=== PATIENT | male | born 1985 | race Caucasian/White ===

== ENCOUNTER → 2017-01-18 | Outpatient (CLI) | payer OTHER ==
[2017-01-18 12:20] LABS: ABSOLUTE EOSINOPHILS # (AUTO) 0.2 10^3/uL (0.0-0.6); ABSOLUTE LYMPHOCYTES (AUTO) 3.5 10^3/uL (0.5-4.7); ABSOLUTE MONOCYTES (AUTO) 0.7 10^3/uL (0.1-1.4); ABSOLUTE NEUT (AUTO) 4.3 10^3/uL (1.7-8.2); BASOPHILS % (AUTO) 0.6 % (0-2); EOSINOPHILS % (AUTO) 2.1 % (0-6); HEMOGLOBIN 16.9 g/dL (13.5-17.0); HGB HCT DIFFERENCE -0.3; LYMPHOCYTES % (AUTO) 40.4 % (13-45); MEAN CORPUSCULAR HEMOGLOBIN 29.9 pg (27.0-33.4); MEAN CORPUSCULAR VOLUME 91 fl (80-97); MONOCYTES % (AUTO) 7.9 % (3-13); RED BLOOD COUNT 5.63 10^6/uL (4.35-5.55); RED CELL DISTRIBUTION WIDTH 13.3 % (11.5-14.0); WHITE BLOOD COUNT 8.7 10^3/uL (4.0-10.5)
[2017-01-18 12:42] LABS: ALANINE AMINOTRANSFERASE 64 U/L (21-72); ALBUMIN 4.2 g/dL (3.5-5.0); ALKALINE PHOSPHATASE 58 U/L (38-126); ANION GAP 12 (5-19); ASPARTATE AMINO TRANSFERASE 40 U/L (17-59); BILIRUBIN,DIRECT 0.3 mg/dL (0.0-0.4); BLOOD UREA NITROGEN 13 mg/dL (7-20); CALCIUM 9.5 mg/dL (8.4-10.2); CARBON DIOXIDE 25 mmol/L (22-30); CHLORIDE 105 mmol/L (98-107); CHOLESTEROL 160.33 mg/dL (0-200); CREATININE RESULT 0.85 mg/dL (0.52-1.25); Direct HDL 29 mg/dL (>40); GLUCOSE 80 mg/dL (75-110); POTASSIUM 4.2 mmol/L (3.6-5.0); SODIUM 142.4 mmol/L (137-145); TOTAL PROTEIN 7.6 g/dL (6.3-8.2); TRIGLYCERIDES 215 mg/dL (<150)
[2017-01-18 12:53] LABS: DIRECT LDL 83 mg/dL (<100)
== END ==
LOC: CCC 11:04
DX: Z13.9 Encounter for screening, unspecified (principal)
CPT/HCPCS: 36415; 80053; 80061; 83036; 84443; 85025

== ENCOUNTER 2017-11-21 19:27 | Emergency (ER) | payer SELFPAY ==
--- NOTE | 2017-11-21 20:23 | RADIOLOGY REPORT (SQ) ---
EXAM DESCRIPTION: KNEE LEFT 4 VIEW COMPLETED DATE/TIME: 11/21/2017 7:59 pm REASON FOR STUDY: left knee pain x 2 weeks COMPARISON: 07/30/2007 NUMBER OF VIEWS: Four views. TECHNIQUE: AP, lateral, and both oblique radiographic images acquired of the left knee. LIMITATIONS: None. FINDINGS: MINERALIZATION: Normal. BONES: No acute fracture or dislocation. No worrisome bone lesions. Mild degenerative changes noted JOINT: No effusion. SOFT TISSUES: No soft tissue swelling. No radio-opaque foreign body. OTHER: No other significant finding. IMPRESSION: Chronic changes without acute abnormality. TECHNICAL DOCUMENTATION: JOB ID: [id number] [employer]- All Rights Reserved Reading location - IP/workstation name: [email or web address]
[2017-11-21] MEDS ORDERED: KETOROLAC TROMETHAMINE 60 MG/2 ML SDV IM ONE (23:04)
--- NOTE | 2017-11-21 23:06 | ER Document Report ---
ED Extremity Problem, Lower - General Chief Complaint: Knee Pain Stated Complaint: KNEE PAIN Time Seen by Provider: 11/21/17 22:45 Mode of Arrival: Ambulatory Information source: Patient Notes: This is a 32-year-old man presenting to the emergency room with left knee pain. Patient states he does have a history of bilateral knee pain for several years. He denies any fever, chills, nausea vomiting. He denies any recent injury. The records do report that he had a knee injury last year at this time. TRAVEL OUTSIDE OF THE [place] IN LAST 30 DAYS: No - HPI Patient complains to provider of: Pain Location: Knee Occurred: Other - Months 2 years Where: Outdoors Onset/Duration: Gradual Quality of pain: Dull Severity: Moderate Pain Level: 2 Context: denies: Direct blow, Recent surgery Recent injury: No Associated symptoms: denies: Chest pain Exacerbated by: Movement Relieved by: Rest - Related Data Allergies/Adverse Reactions: Bee Sting Allergy (Uncoded 02/17/15 18:20) Past Medical History - General Information source: Patient - Social History Smoking Status: Current Every Day Smoker Cigarette use (# per day): Yes Chew tobacco use (# tins/day): No - Half pack per day Frequency of alcohol use: None Drug Abuse: None Lives with: Family Family History: Reviewed & Not Pertinent Patient has suicidal ideation: No Patient has homicidal ideation: No - Past Medical History Cardiac Medical History: Denies: Hx Coronary Artery Disease, Hx Heart Attack, Hx Hypertension Pulmonary Medical History: Denies: Hx Asthma, Hx Bronchitis, Hx COPD, Hx Pneumonia Neurological Medical History: Denies: Hx Cerebrovascular Accident, Hx Seizures Musculoskeltal Medical History: Reports Hx Arthritis - Spine Surgical Hx: Negative - Immunizations Hx Diphtheria, Pertussis, Tetanus Vaccination: Yes Review of Systems - Review of Systems Constitutional: denies: Chills, Fever EENT: No symptoms reported Cardiovascular: No symptoms reported Respiratory: No symptoms reported Gastrointestinal: No symptoms reported Genitourinary: No symptoms reported Male Genitourinary: No symptoms reported Musculoskeletal: See HPI Skin: No symptoms reported Hematologic/Lymphatic: No symptoms reported Neurological/Psychological: No symptoms reported Physical Exam - Vital signs Vitals: Temp Pulse Resp BP Pulse Ox 97.5 F 95 22 H 151/101 H 97 11/21/17 20:03 11/21/17 20:03 11/21/17 20:03 11/21/17 20:03 11/21/17 20:03 Notes: Physical exam: GENERAL: 82-year-old man, alert and oriented 3, no acute distress HEAD: Atraumatic, normocephalic. EYES: Pupils equal round and reactive to light, extraocular movements intact, sclera anicteric, conjunctiva are normal. ENT: TMs normal, nares patent, oropharynx clear without exudates. Moist mucous membranes. NECK: Normal range of motion, supple without obvious mass or JVD. LUNGS: Breath sounds clear to auscultation bilaterally and equal. No wheezes rales or rhonchi. HEART: Regular rate and rhythm without murmurs, rubs or gallops. ABDOMEN: Soft, normoactive bowel sounds. No tenderness to palpation. No guarding, no rebound. No masses appreciated. EXTREMITIES: Normal range of motion, no pitting or edema. There is no effusion or erythema of either knee. Is no swelling about either knee. Extremities are neurovascularly intact. NEUROLOGICAL: Cranial nerves II through XII grossly intact. Normal speech, moving all extremities. PSYCH: Normal mood, normal affect. SKIN: Warm, Dry, normal turgor, no rashes or lesions noted. Course - Vital Signs Vital signs: Temp Pulse Resp BP Pulse Ox 97.9 F 85 16 151/96 H 97 11/21/17 23:20 11/21/17 23:20 11/21/17 23:20 11/21/17 23:20 11/21/17 23:20 - Diagnostic Test Radiology reviewed: Image reviewed, Reports reviewed - X-rays of the knee show no acute bony injury Discharge - Discharge Clinical Impression: Arthritis left knee Condition: Stable Disposition: HOME, SELF-CARE Additional Instructions: As discussed, losing some weight may take some of the pressure off the knee and may help symptomatically with the knee. Continue with tramadol as previously prescribed as well as the ibuprofen. Ibuprofen may be cheaper [id number]: 400 mg every 6-8 hours for a few days at a time. Additionally, I recommend following up in the [facility] with referral to may be orthopedics for injections. Prescriptions: Tramadol HCl 50 mg PO Q6HP PRN #20 tablet PRN Reason: Referrals: [facility] [Provider Group] - Follow up as needed (Is the number the [facility] affiliated with the hospital)
[2017-11-21 23:22] VITALS: BP 151/96
== END 2017-11-21 23:41 | disposition home or self-care (01) ==
LOC: ER 19:27
DX: M17.12 Unilateral primary osteoarthritis, left knee (principal); M25.562 Pain in left knee; F17.210 Nicotine dependence, cigarettes, uncomplicated; Z87.828 Personal history of other (healed) physical injury and trauma
CPT/HCPCS: 99283; 96372; 73562; J1885

== ENCOUNTER 2019-09-17 04:19 | Inpatient (IN) | payer SELFPAY ==
[2019-09-17] MEDS ORDERED: NORMAL SALINE 1000 ML 1,000 ML IV ONE ×2 (04:36→07:55)
[2019-09-17] MEDS ORDERED: ONDANSETRON HCL INJ/PF 4 MG/2 ML SDV ONE (04:37)
[2019-09-17] MEDS ORDERED: ONDANSETRON HCL INJ/PF 4 MG/2 ML SDV IV ONE (04:46)
[2019-09-17] MEDS ORDERED: HYDROMORPHONE HCL INJ/PF 2 MG/ML AMPULE IV ONE ×2 (05:01→07:09)
--- NOTE | 2019-09-17 05:11 | ER Document Report ---
Entered by HERNANDEZ STONE SCRIBE 09/17/19 0455 Acting as scribe for:LAKE OROPEZA IV, MD ED GI/ - General Mode of Arrival: Ambulatory Information source: Patient TRAVEL OUTSIDE OF THE [place] IN LAST 30 DAYS: No <LAKE OROPEZA IV - Last Filed: 09/17/19 05:35> <KIMBERLEE SONG - Last Filed: 09/17/19 08:36> - General Chief Complaint: Abdominal Pain Stated Complaint: STOMACH PAIN,DIARRHEA,VOMITING Time Seen by Provider: 09/17/19 04:53 Notes: This 34 year old male patient with a past surgical history of an umbilical herniorrhapy presents to the ED today with abdominal pain with associated nausea , vomiting, and diarrhea that started around 0100 this morning. Significant other at bedside states that the patient came home from work around 1900 last night not really feeling well and went to bed. Patient states that no one else at work is presenting with similar symptoms. Patient denies any radiation of pain, fever, or chills. (LAKE OROPEZA IV) - Related Data Allergies/Adverse Reactions: Bee Sting Allergy (Uncoded 02/17/15 18:20) Past Medical History - General Information source: Patient, [facility] Records - Social History Smoking Status: Unknown if Ever Smoked Cigarette use (# per day): No Chew tobacco use (# tins/day): No Smoking Education Provided: No Family History: Reviewed & Not Pertinent Patient has suicidal ideation: No Patient has homicidal ideation: No Musculoskeletal Medical History: Reports Hx Arthritis - Spine Past Surgical History: Reports: Hx Abdominal Surgery - Umbilical hernia repair - Immunizations Hx Diphtheria, Pertussis, Tetanus Vaccination: Yes <LAKE OROPEZA IV - Last Filed: 09/17/19 05:35> Review of Systems - Review of Systems Constitutional: See HPI. denies: Chills, Fever EENT: No symptoms reported Cardiovascular: No symptoms reported Respiratory: No symptoms reported Gastrointestinal: See HPI, Abdominal pain, Diarrhea, Nausea, Vomiting Genitourinary: No symptoms reported Male Genitourinary: No symptoms reported Musculoskeletal: No symptoms reported Skin: No symptoms reported Hematologic/Lymphatic: No symptoms reported Neurological/Psychological: No symptoms reported -: Yes All other systems reviewed and negative <LAKE OROPEZA IV - Last Filed: 09/17/19 05:35> Physical Exam - Vital signs Interpretation: Hypertensive, Tachycardic - General General appearance: Anxious - HEENT Head: Normocephalic, Atraumatic Eyes: Normal Pupils: PERRL - Respiratory Respiratory status: No respiratory distress Chest status: Nontender Breath sounds: Normal Chest palpation: Normal - Cardiovascular Rhythm: Tachycardia Heart sounds: Normal auscultation Murmur: No Friction rub: No Gallop: None auscultated - Abdominal Inspection: Other - Patient localizes to pain in the epigastic region. Distension: No distension Bowel sounds: Normal Tenderness: Tender - Tender to palpate in LLQ. Organomegaly: No organomegaly - Back Back: Normal, Nontender - Extremities General upper extremity: Normal inspection General lower extremity: Normal inspection - Neurological Neuro grossly intact: Yes - Psychological Associated symptoms: Anxious - Skin Skin Temperature: Warm Skin Moisture: Dry Skin Color: Normal <LAKE OROPEZA IV - Last Filed: 09/17/19 05:35> - Vital signs Vitals: Temp Pulse Resp BP Pulse Ox 98.2 F 125 H 18 155/102 H 97 09/17/19 04:24 09/17/19 04:24 09/17/19 04:24 09/17/19 04:24 09/17/19 04:24 Course - Laboratory Result Diagrams: 09/17/19 04:43 09/17/19 04:43 - Transfer of Care Care transferred to following provider: DR. MARTIN <LAKE OROPEZA IV - Last Filed: 09/17/19 05:35> - Laboratory Result Diagrams: 09/17/19 04:43 09/17/19 04:43 - Diagnostic Test Radiology reviewed: Image reviewed, Reports reviewed - Transfer of Care Care transferred to following provider: Dr. Song <KIMBERLEE SONG - Last Filed: 09/17/19 08:36> - Re-evaluation Re-evalutation: 09/17/19 07:57 The patient was signed out to me at shift change. The patient has a small bowl obstruction based on his CT scan and his WBC count is elevated. Dr. Hodge of Surgery as consulted and he will see the patient in the ER. Dr. Hodge would like an 18F NG tube placed. 09/17/19 08:35 Dr. Hodge would like the patient's CBC repeated after hydration due to the significantly elevated H/H. Dr. Hodge will admit the patient. ([place],KIMBERLEE ) - Vital Signs Vital signs: Temp Pulse Resp BP Pulse Ox 98.2 F 125 H 19 194/82 H 96 09/17/19 04:24 09/17/19 04:24 09/17/19 07:00 09/17/19 06:16 09/17/19 07:00 - Laboratory Laboratory results interpreted by me: 09/17/19 09/17/19 04:43 04:43 WBC 17.1 H RBC 6.71 H Hgb 20.5 H* Hct 60.7 H* Absolute Neuts (auto) 13.1 H Carbon Dioxide 20 L Glucose 130 H Calcium 10.4 H ALT 52 H Total Protein 9.4 H Albumin 5.3 H - EKG Interpretation by Me Additional EKG results interpreted by me: 09/17/19 05:36 EKG obtained on 09/17/2019 at 0446 hrs. was interpreted by this MD. Findings: Sinus tachycardia, rate 119, right bundle branch block is present nonspecific ST segments are also present. Impression sinus tachycardia with right bundle branch block and nonspecific ST segments. (LAKE OROPEZA IV) Discharge <LAKE OROPEZA IV - Last Filed: 09/17/19 05:35> - Discharge Admitting Provider: Surgicalist <KIMBERLEE SONG - Last Filed: 09/17/19 08:36> - Discharge Clinical Impression: Small bowel obstruction Abdominal pain Qualifiers: Abdominal location: generalized Qualified Code(s): R10.84 - Generalized abdominal pain Condition: Stable Disposition: ADMITTED INPATIENT I personally performed the services described in the documentation, reviewed and edited the documentation which was dictated to the scribe in my presence, and it accurately records my words and actions.
[2019-09-17 05:33] LABS: ABSOLUTE BASOPHILS # (AUTO) 0.1 10^3/uL (0.0-0.2); ABSOLUTE EOSINOPHILS # (AUTO) 0.2 10^3/uL (0.0-0.6); ABSOLUTE LYMPHOCYTES (AUTO) 2.6 10^3/uL (0.5-4.7); ABSOLUTE MONOCYTES (AUTO) 1.2 10^3/uL (0.1-1.4); ABSOLUTE NEUT (AUTO) 13.1 10^3/uL (1.7-8.2); BASOPHILS % (AUTO) 0.5 % (0-2); EOSINOPHILS % (AUTO) 0.9 % (0-6); LYMPHOCYTES % (AUTO) 15.5 % (13-45); MEAN CORPUSCULAR HEMOGLOBIN 30.6 pg (27.0-33.4); MEAN CORPUSCULAR HGB CONC 33.8 g/dL (32.0-36.0); MEAN CORPUSCULAR VOLUME 90 fl (80-97); MONOCYTES % (AUTO) 6.9 % (3-13); PLATELET COUNT 242 10^3/uL (150-450); RED BLOOD COUNT 6.71 10^6/uL (4.35-5.55); RED CELL DISTRIBUTION WIDTH 13.6 % (11.5-14.0); SEGMENTED NEUTROPHILS % (AUTO) 76.2 % (42-78); TOTAL CELLS COUNTED % (AUTO) 100 %; WHITE BLOOD COUNT 17.1 10^3/uL (4.0-10.5)
[2019-09-17 05:40] LABS: HEMATOCRIT 60.7 % (37.9-51.0); HEMOGLOBIN 20.5 g/dL (13.5-17.0)
[2019-09-17 05:42] LABS: ALBUMIN 5.3 g/dL (3.5-5.0); ALKALINE PHOSPHATASE 62 U/L (38-126); ANION GAP 17 (5-19); ASPARTATE AMINO TRANSFERASE 35 U/L (17-59); BILIRUBIN,DIRECT 0.1 mg/dL (0.0-0.4); BILIRUBIN,TOTAL 0.9 mg/dL (0.2-1.3); BLOOD UREA NITROGEN 18 mg/dL (7-20); CALCIUM 10.4 mg/dL (8.4-10.2); CARBON DIOXIDE 20 mmol/L (22-30); CHLORIDE 104 mmol/L (98-107); GLUCOSE 130 mg/dL (75-110); POTASSIUM 4.4 mmol/L (3.6-5.0); TOTAL PROTEIN 9.4 g/dL (6.3-8.2)
--- NOTE | 2019-09-17 06:14 | EKG REPORT ---
SEVERITY:- ABNORMAL ECG - SINUS TACHYCARDIA PROBABLE LEFT ATRIAL ABNORMALITY RBBB AND LPFB : Confirmed by: Tariq Cook MD 17-Sep-2019 06:13:09
--- NOTE | 2019-09-17 06:33 | RADIOLOGY REPORT (SQ) ---
CLINICAL HISTORY: epigastric pain COMPARISON: 02/05/2015. 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 Lungs are clear without consolidation, atelectasis, mass or edema. There is no pleural effusion. There is no pneumothorax. There are no acute osseous findings. IMPRESSION: Clear lungs.
--- NOTE | 2019-09-17 07:21 | RADIOLOGY REPORT (SQ) ---
CT abdomen and pelvis with contrast on 09/17/2019 at 6:30 AM CLINICAL INDICATION: Epigastric pain TECHNIQUE: Multiple axial images are obtained throughout the abdomen and pelvis following the administration of IV contrast, 100 mL of Omnipaque 350 contrast was administered intravenously without complication. This exam was performed according to our departmental dose-optimization program, which includes automated exposure control, adjustment of the mA and/or kV according to patient size and/or use of iterative reconstruction technique. Total DLP is 2425.94 mGy*cm. COMPARISON: None FINDINGS: Abdomen: There is a minimal bibasilar atelectasis. There is fatty infiltration of the liver. There is a partially duplicated right renal collecting system. There is no right hydronephrosis or hydroureter but there is an apparent 3-4 mm nonobstructing stone in the proximal right ureter. The solid abdominal organs are otherwise unremarkable. There is no abdominal adenopathy. There is no free fluid or free air within the abdomen. There are multiple dilated fluid-filled loops of small bowel in the left abdomen with decompressed distal small bowel consistent with small bowel obstruction. Transition point is in the right anterior abdomen most likely related to an adhesion. Recommend NG tube placement and surgical consultation. Pelvis: There is no free fluid in the pelvis. Pelvic portion of the GI tract including the appendix is otherwise unremarkable. There is no pelvic adenopathy. Degenerative changes are noted in the lower lumbar spine. IMPRESSION: 1. Findings consistent with a small bowel obstruction most likely related to an adhesion, recommend NG tube placement and surgical consultation. 2. Apparent nonobstructing 3-4 mm right proximal ureteral stone. 3. Fatty infiltration of the liver.
--- NOTE | 2019-09-17 08:40 | PDOC H&P ---
History of Present Illness Admission Date/PCP: 09/17/19 08:23 Patient complains of: Abdominal pain nausea vomiting History of Present Illness: MARKOS DÍAZ is a 34 year old male Presents emergency department with acute onset abdominal pain nausea multiple episodes of vomiting. Started after eating last night. He denies previous sepsis, history term or any gastrointestinal problems. His emergency department where a CT scan of the abdomen and pelvis which showed evidence of possible bowel obstruction. This was performed with IV but no oral contrast. Patient has a history of umbilical herniorrhaphy by Dr. Hodge 4 years ago. Patient reports he has several episodes of diarrhea. He received IV fluids, pain medication and antiemetics. He feels a little better. Patient is evaluated by the surgical service and advised admission. Past Medical History Past Medical History: Obesity, smoking abuse Cardiac Medical History: Denies: Coronary Artery Disease, Myocardial Infarction, Hypertension Pulmonary Medical History: Denies: Asthma, Bronchitis, Chronic Obstructive Pulmonary Disease (COPD), Pneumonia Neurological Medical History: Denies: Seizures Musculoskeltal Medical History: Reports: Arthritis - Spine Hematology: Denies: Anemia Past Surgical History Past Surgical History: Umbilical herniorrhaphy with mesh, intraperitoneal position, 2016 Social History Information Source: Patient Smoking Status: Current Every Day Smoker Electronic Cigarette use?: No Frequency of Alcohol Use: Rare Hx Recreational Drug Use: No Family History Family History: None, Reviewed & Not Pertinent Parental Family History Reviewed: No Children Family History Reviewed: No Sibling(s) Family History Reviewed.: No Medication/Allergy Allergies/Adverse Reactions: Bee Sting Allergy (Uncoded 02/17/15 18:20) Review of Systems Constitutional: PRESENT: as per HPI Eyes: ABSENT: visual disturbances Ears: ABSENT: hearing changes Cardiovascular: ABSENT: chest pain, dyspnea on exertion, edema, orthropnea, palpitations Gastrointestinal: PRESENT: other - As per HPI; patient denies previous gastrointestinal symptoms Genitourinary: ABSENT: dysuria, hematuria Musculoskeletal: PRESENT: other - Chronic back pain Integumentary: PRESENT: other - Skin Neurological: ABSENT: abnormal gait, abnormal speech, confusion, dizziness, focal weakness, syncope Psychiatric: ABSENT: anxiety, depression, homidical ideation, suicidal ideation Endocrine: ABSENT: cold intolerance, heat intolerance, polydipsia, polyuria Hematologic/Lymphatic: ABSENT: easy bleeding, easy bruising Physical Exam Vital Signs: Temp Pulse Resp BP Pulse Ox 98.2 F 125 H 19 194/82 H 96 09/17/19 04:24 09/17/19 04:24 09/17/19 07:00 09/17/19 06:16 09/17/19 07:00 Intake & Output 09/16/19 09/17/19 09/18/19 06:59 06:59 06:59 Intake Total 1000 Balance 1000 Weight 156.9 kg General appearance: PRESENT: mild distress Head exam: PRESENT: normocephalic Eye exam: PRESENT: other - Right sclerae injected Mouth exam: PRESENT: dry mucosa Neck exam: PRESENT: full ROM Respiratory exam: PRESENT: crackles Pulses: PRESENT: normal carotid pulses, normal radial pulses, normal femoral pulses GI/Abdominal exam: PRESENT: other - Soft, minimally tender no peritoneal signs no rigidity; reducible umbilical hernia; Rectal exam: PRESENT: deferred Extremities exam: PRESENT: full ROM Musculoskeletal exam: PRESENT: other - +2 pedal edema Neurological exam: PRESENT: oriented to person, oriented to place, oriented to time, oriented to situation Psychiatric exam: PRESENT: appropriate affect Results Laboratory Results: 09/17/19 04:43 09/17/19 04:43 09/17/19 09/17/19 04:43 04:43 WBC 17.1 H RBC 6.71 H Hgb 20.5 H* Hct 60.7 H* MCV 90 MCH 30.6 MCHC 33.8 RDW 13.6 Plt Count 242 Seg Neutrophils % 76.2 Sodium 140.9 Potassium 4.4 Chloride 104 Carbon Dioxide 20 L Anion Gap 17 BUN 18 Creatinine 1.09 Est GFR ( Amer) > 60 Glucose 130 H Calcium 10.4 H Total Bilirubin 0.9 AST 35 Alkaline Phosphatase 62 Total Protein 9.4 H Albumin 5.3 H Lipase 150.9 09/17/19 04:43 Troponin I < 0.012 Impressions: Chest X-Ray 09/17/19 05:12 IMPRESSION: Clear lungs. Abdomen/Pelvis CT 09/17/19 05:39 IMPRESSION: 1. Findings consistent with a small bowel obstruction most likely related to an adhesion, recommend NG tube placement and surgical consultation. 2. Apparent nonobstructing 3-4 mm right proximal ureteral stone. 3. Fatty infiltration of the liver. Assessment & Plan - Diagnosis (1) Abdominal pain Qualifiers: Abdominal location: generalized Qualified Code(s): R10.84 - Generalized abdominal pain Is this a current diagnosis for this admission?: Yes Plan: Impression: Acute onset abdominal pain, nausea vomiting and diarrhea. Leukocytosis, and elevated hemoglobin, CT scan findings suggestive of possible small bowel obstruction, however study performed without oral contrast. Clinical scenario more consistent with gastroenteritis. Recommendations: 1. We will admit, keep n.p.o. on IV fluids. Hold off on nasogastric tube as patient not nauseated and not vomiting currently. 2. We will repeat CBC. 3. Hold off on narcotics, reexamined patient at short intervals to assess clinical progression. Patient may require additional imaging, or operative exploration pending clinical course. This is explained to the patient. I believe he understands and agrees to proceed. (2) Tachycardia Is this a current diagnosis for this admission?: Yes (3) Obesity Is this a current diagnosis for this admission?: Yes (4) Leukocytosis Is this a current diagnosis for this admission?: Yes (5) Abuse of smoked substance Is this a current diagnosis for this admission?: Yes - Time Time Spent: 30 to 50 Minutes Smoking Cessation Education: over 10 minutes Medications reviewed and adjusted accordingly: Yes Anticipated discharge: Home - Inpatient Certification Based on my medical assessment, after consideration of the patient's comorbidities, presenting symptoms, or acuity I expect that the services needed warrant INPATIENT care.: Yes I certify that my determination is in accordance with my understanding of [employer] requirements for reasonable and necessary INPATIENT services [42 CFR 412.3e].: Yes Medical Necessity: Need For IV Fluids
[2019-09-17 08:45] LABS: ABSOLUTE BASOPHILS # (AUTO) 0.1 10^3/uL (0.0-0.2); ABSOLUTE LYMPHOCYTES (AUTO) 1.3 10^3/uL (0.5-4.7); ABSOLUTE MONOCYTES (AUTO) 0.8 10^3/uL (0.1-1.4); ABSOLUTE NEUT (AUTO) 11.6 10^3/uL (1.7-8.2); BASOPHILS % (AUTO) 0.4 % (0-2); EOSINOPHILS % (AUTO) 0.1 % (0-6); HEMOGLOBIN 19.5 g/dL (13.5-17.0); LYMPHOCYTES % (AUTO) 9.3 % (13-45); MEAN CORPUSCULAR HEMOGLOBIN 30.9 pg (27.0-33.4); MEAN CORPUSCULAR HGB CONC 34.6 g/dL (32.0-36.0); MEAN CORPUSCULAR VOLUME 90 fl (80-97); PLATELET COUNT 224 10^3/uL (150-450); RED CELL DISTRIBUTION WIDTH 13.5 % (11.5-14.0); SEGMENTED NEUTROPHILS % (AUTO) 84.2 % (42-78); TOTAL CELLS COUNTED % (AUTO) 100 %; WHITE BLOOD COUNT 13.7 10^3/uL (4.0-10.5)
[2019-09-17 08:46] LABS: HEMATOCRIT 56.4 % (37.9-51.0)
[2019-09-17] MEDS: RINGERS SOLUTION,LACTATED 1,000 ML IV PRN ×2 (10:11→15:10)
[2019-09-17] MEDS: FAMOTIDINE INJ/PF 20 MG/2 ML SDV IV SCH ×2 (10:16→17:38)
[2019-09-17 11:39] LABS: APPEARANCE,URINE CLEAR; BILIRUBIN,URINE NEGATIVE (NEGATIVE); COLOR,URINE YELLOW; GLUCOSE, URINE NEGATIVE (NEGATIVE); KETONES,URINE NEGATIVE (NEGATIVE); LEUKOCYTE ESTERASE,URINE NEGATIVE (NEGATIVE); NITRITE,URINE NEGATIVE (NEGATIVE); PROTEIN,URINE 100 mg/dL (NEGATIVE); UROBILINOGEN,URINE NEGATIVE mg/dL (<2.0)
[2019-09-17 11:48] LABS: URINE SPECIFIC GRAVITY > 1.060
[2019-09-17] MEDS ORDERED: KETOROLAC TROMETHAMINE 60 MG/2 ML SDV IV ONE (12:49)
[2019-09-17] MEDS ORDERED: NICOTINE 21 MG/24 HR PATCH.TD24 TD PRN (16:15)
[2019-09-18] MEDS: RINGERS SOLUTION,LACTATED 1,000 ML IV PRN (02:10)
[2019-09-18] MEDS ORDERED: KETOROLAC TROMETHAMINE 10 MG TABLET PO ONE (05:15)
[2019-09-18 05:35] LABS: ABSOLUTE EOSINOPHILS # (AUTO) 0.2 10^3/uL (0.0-0.6); ABSOLUTE MONOCYTES (AUTO) 0.7 10^3/uL (0.1-1.4); ABSOLUTE NEUT (AUTO) 5.1 10^3/uL (1.7-8.2); BASOPHILS % (AUTO) 0.6 % (0-2); EOSINOPHILS % (AUTO) 2.3 % (0-6); LYMPHOCYTES % (AUTO) 24.6 % (13-45); MEAN CORPUSCULAR HEMOGLOBIN 30.7 pg (27.0-33.4); MEAN CORPUSCULAR HGB CONC 33.6 g/dL (32.0-36.0); MEAN CORPUSCULAR VOLUME 91 fl (80-97); MONOCYTES % (AUTO) 8.5 % (3-13); PLATELET COUNT 177 10^3/uL (150-450); RED BLOOD COUNT 5.59 10^6/uL (4.35-5.55); RED CELL DISTRIBUTION WIDTH 13.5 % (11.5-14.0); TOTAL CELLS COUNTED % (AUTO) 100 %
[2019-09-18 05:42] LABS: HEMOGLOBIN 17.1 g/dL (13.5-17.0)
--- NOTE | 2019-09-18 09:09 | PDOC PROGRESS REPORT ---
Subjective Progress Note for:: 09/18/19 Subjective:: Feels well. No abdominal pain. Bowel movements have solidified. No nausea or vomiting. Reason For Visit: ABDOMINAL PAIN NAUSEA AND VOMITING Physical Exam Vital Signs: Temp Pulse Resp BP Pulse Ox 98.5 F 88 20 126/71 H 99 09/18/19 07:43 09/18/19 07:43 09/18/19 07:43 09/18/19 07:43 09/18/19 07:43 Intake & Output 09/17/19 09/18/19 09/19/19 06:59 06:59 06:59 Intake Total 1000 4678 Balance 1000 4678 Weight 156.9 kg 142.5 kg General appearance: PRESENT: no acute distress, cooperative Respiratory exam: PRESENT: clear to auscultation callie Cardiovascular exam: PRESENT: RRR GI/Abdominal exam: PRESENT: other - Soft, nondistended, nontender to palpation. Results Laboratory Results: 09/18/19 05:03 09/17/19 04:43 09/17/19 09/18/19 11:05 05:03 WBC 8.0 RBC 5.59 H Hgb 17.1 H D Hct 51.0 MCV 91 MCH 30.7 MCHC 33.6 RDW 13.5 Plt Count 177 Seg Neutrophils % 64.0 Urine Color YELLOW Urine Appearance CLEAR Urine pH 5.0 Ur Specific [place] > 1.060 Urine Protein 100 H Urine Glucose (UA) NEGATIVE Urine Ketones NEGATIVE Urine Blood MODERATE H Urine Nitrite NEGATIVE Ur Leukocyte Esterase NEGATIVE Urine WBC (Auto) 4 Urine RBC (Auto) 17 09/17/19 04:43 Troponin I < 0.012 Impressions: Chest X-Ray 09/17/19 05:12 IMPRESSION: Clear lungs. Abdomen/Pelvis CT 09/17/19 05:39 IMPRESSION: 1. Findings consistent with a small bowel obstruction most likely related to an adhesion, recommend NG tube placement and surgical consultation. 2. Apparent nonobstructing 3-4 mm right proximal ureteral stone. 3. Fatty infiltration of the liver. Assessment & Plan - Diagnosis (1) Gastroenteritis Is this a current diagnosis for this admission?: Yes Plan: Appears to have resolved. Will try solid food. If tolerated will discharge patient home.
[2019-09-18] MEDS: FAMOTIDINE INJ/PF 20 MG/2 ML SDV IV SCH (09:28)
[2019-09-18 13:57] VITALS: BP 132/80
--- NOTE | 2019-09-18 14:27 | PDOC DISCHARGE SUMMARY ---
General - Admit/Disc Date/PCP Admission Date/Primary Care Provider: 09/17/19 08:23 Discharge Date: 09/18/19 - Discharge Diagnosis Final Diagnosis: Gastroenteritis - Assessment Summary: Clinical impression was that of gastroenteritis rather than small bowel obstruction. And his hospital course supported this impression. He was started on liquid diet gradually advanced to a solid diet and he had normal bowel function at the time of discharge. His abdominal exam look good with no tenderness and no distention and he stated that his abdomen was back to baseline at the time of discharge. With hydration his elevated hematocrit markedly improved. He is now been discharged home in good condition. He will follow-up at [facility] in a couple weeks. He is to call immediately for any recurrence of his symptoms. He may follow a regular diet. Recommend staying well-hydrated. No home medications. - Additional Information Resuscitation Status: Full Code Discharge Diet: As Tolerated - Stay well-hydrated Discharge Activity: Activity As Tolerated Referrals: [facility] [Outside] Home Medications: No Home Medications 09/17/19 History of Present Illiness History of Present Illness: MARKOS DÍAZ is a 34 year old male Physical Exam Vital Signs: Temp Pulse Resp BP Pulse Ox 97.6 F 73 22 H 132/80 H 100 09/18/19 12:00 09/18/19 12:00 09/18/19 12:00 09/18/19 12:00 09/18/19 12:00 Intake & Output 09/17/19 09/18/19 09/19/19 06:59 06:59 06:59 Intake Total 1000 4678 1300 Output Total 400 Balance 1000 4678 900 Weight 156.9 kg 142.5 kg Results Laboratory Results: WBC 8.0 10^3/uL (4.0-10.5) 09/18/19 05:03 RBC 5.59 10^6/uL (4.35-5.55) H 09/18/19 05:03 Hgb 17.1 g/dL (13.5-17.0) H D 09/18/19 05:03 Hct 51.0 % (37.9-51.0) 09/18/19 05:03 MCV 91 fl (80-97) 09/18/19 05:03 MCH 30.7 pg (27.0-33.4) 09/18/19 05:03 MCHC 33.6 g/dL (32.0-36.0) 09/18/19 05:03 RDW 13.5 % (11.5-14.0) 09/18/19 05:03 Plt Count 177 10^3/uL (150-450) 09/18/19 05:03 Lymph % (Auto) 24.6 % (13-45) 09/18/19 05:03 [place] % (Auto) 8.5 % (3-13) 09/18/19 05:03 Eos % (Auto) 2.3 % (0-6) 09/18/19 05:03 Baso % (Auto) 0.6 % (0-2) 09/18/19 05:03 Absolute Neuts (auto) 5.1 10^3/uL (1.7-8.2) 09/18/19 05:03 Absolute Lymphs (auto) 2.0 10^3/uL (0.5-4.7) 09/18/19 05:03 Absolute Monos (auto) 0.7 10^3/uL (0.1-1.4) 09/18/19 05:03 Absolute Eos (auto) 0.2 10^3/uL (0.0-0.6) 09/18/19 05:03 Absolute Basos (auto) 0.0 10^3/uL (0.0-0.2) 09/18/19 05:03 Seg Neutrophils % 64.0 % (42-78) 09/18/19 05:03 Sodium 140.9 mmol/L (137-145) 09/17/19 04:43 Potassium 4.4 mmol/L (3.6-5.0) 09/17/19 04:43 Chloride 104 mmol/L (98-107) 09/17/19 04:43 Carbon Dioxide 20 mmol/L (22-30) L 09/17/19 04:43 Anion Gap 17 (5-19) 09/17/19 04:43 BUN 18 mg/dL (7-20) 09/17/19 04:43 Creatinine 1.09 mg/dL (0.52-1.25) 09/17/19 04:43 Est GFR ( Amer) > 60 (>60) 09/17/19 04:43 Est GFR (MDRD) Non-Af > 60 (>60) 09/17/19 04:43 Glucose 130 mg/dL (75-110) H 09/17/19 04:43 Calcium 10.4 mg/dL (8.4-10.2) H 09/17/19 04:43 Total Bilirubin 0.9 mg/dL (0.2-1.3) 09/17/19 04:43 Direct Bilirubin 0.1 mg/dL (0.0-0.4) 09/17/19 04:43 Neonat Total Bilirubin Not Reportable 09/17/19 04:43 Neonat Direct Bilirubin Not Reportable 09/17/19 04:43 Neonat Indirect Bili Not Reportable 09/17/19 04:43 AST 35 U/L (17-59) 09/17/19 04:43 ALT 52 U/L (<50) H 09/17/19 04:43 Alkaline Phosphatase 62 U/L (38-126) 09/17/19 04:43 Troponin I < 0.012 ng/mL 09/17/19 04:43 Total Protein 9.4 g/dL (6.3-8.2) H 09/17/19 04:43 Albumin 5.3 g/dL (3.5-5.0) H 09/17/19 04:43 Lipase 150.9 U/L (23-300) 09/17/19 04:43 Urine Color YELLOW 09/17/19 11:05 Urine Appearance CLEAR 09/17/19 11:05 Urine pH 5.0 (5.0-9.0) 09/17/19 11:05 Ur Specific [place] > 1.060 09/17/19 11:05 Urine Protein 100 mg/dL (NEGATIVE) H 09/17/19 11:05 Urine Glucose (UA) NEGATIVE mg/dL (NEGATIVE) 09/17/19 11:05 Urine Ketones NEGATIVE mg/dL (NEGATIVE) 09/17/19 11:05 Urine Blood MODERATE (NEGATIVE) H 09/17/19 11:05 Urine Nitrite NEGATIVE (NEGATIVE) 09/17/19 11:05 Urine Bilirubin NEGATIVE (NEGATIVE) 09/17/19 11:05 Urine Urobilinogen NEGATIVE mg/dL (<2.0) 09/17/19 11:05 Ur Leukocyte Esterase NEGATIVE (NEGATIVE) 09/17/19 11:05 Urine WBC (Auto) 4 /HPF 09/17/19 11:05 Urine RBC (Auto) 17 /HPF 09/17/19 11:05 Urine Mucus (Auto) MANY /LPF 09/17/19 11:05 Urine Ascorbic Acid NEGATIVE (NEGATIVE) 09/17/19 11:05 09/17/19 04:43 Troponin I < 0.012 Impressions: Chest X-Ray 09/17/19 05:12 IMPRESSION: Clear lungs. Abdomen/Pelvis CT 09/17/19 05:39 IMPRESSION: 1. Findings consistent with a small bowel obstruction most likely related to an adhesion, recommend NG tube placement and surgical consultation. 2. Apparent nonobstructing 3-4 mm right proximal ureteral stone. 3. Fatty infiltration of the liver.
== END 2019-09-18 16:42 | disposition home or self-care (01) | DRG 392 ==
LOC: ER 04:19 → UNDOADMIN 08:23 → EH 08:23 → 4W 14:59
PROVIDERS: ADMIT Surgery; ATTEND Surgery
DX: K52.9 Noninfective gastroenteritis and colitis, unspecified (principal); E66.9 Obesity, unspecified; F17.210 Nicotine dependence, cigarettes, uncomplicated; I45.10 Unspecified right bundle-branch block; Z91.030 Bee allergy status
CPT/HCPCS: 36415; 71045; 74177; 80053; 81001; 83690; 84484; 85025; 93005; 93010; 96361; 96374; 96375; 96376; 99285; J1170; J1885; J2405; J3490; J7030; J7120; S0028